=== PATIENT | female | born 1960 | race Caucasian/White ===

== ENCOUNTER 2016-06-23 12:42 | Emergency (ER) | payer MEDICAID ==
[2016-06-23] MEDS ORDERED: BUPIVACAINE 0.5% PF 30 ML VIAL ONE (12:57)
[2016-06-23] MEDS ORDERED: SODIUM BICARBONATE ABBOJECT 50 MEQ/50 ML SYRINGE ONE (12:57)
[2016-06-23] MEDS ORDERED: AMOXICILLIN 250 MG CAPSULE PO STA (13:03)
[2016-06-23] MEDS ORDERED: AMOXICILLIN 250 MG CAPSULE PO ONE (13:04)
[2016-06-23] MEDS ORDERED: HYDROcod/ACETAM 5/325 MG TABLET PO STA (13:23)
[2016-06-23] MEDS ORDERED: HYDROcod/ACETAM 5/325 MG TABLET ONE (13:25)
== END 2016-06-23 13:29 | disposition home or self-care (01) ==
DX: K04.7 Periapical abscess without sinus (principal); L03.211 Cellulitis of face; K02.9 Dental caries, unspecified; Z87.891 Personal history of nicotine dependence
CPT/HCPCS: 41800; 64400; 99283; A9270

== ENCOUNTER 2019-11-28 09:57 | Emergency (ER) | payer MEDICAID ==
[2019-11-28 10:16] VITALS: BP 141/90
[2019-11-28] MEDS ORDERED: BUFFERED LIDOCAINE 10 ML SYRINGE SUBQ STA (11:39)
[2019-11-28] MEDS ORDERED: LIDOCAINE 1% 2 ML VIAL SUBQ STA (11:53)
--- NOTE | 2019-11-28 11:56 | ED Physician Documentation ---
PD HPI UPPER EXT INJURY - Stated complaint Stated Complaint: L HAND LAC - Chief complaint Chief Complaint: Laceration - History obtained from History obtained from: Patient - Additonal information Additional information: Patient states that she was operating a hide trimmer when she accidentally cut her left middle and ring fingertips. Patient denies any other injuries at this time. She states this happened about an hour and a half ago. Patient states she thinks her last tetanus shot was within the last 10 years. Review of Systems Ten Systems: 10 systems reviewed and negative Constitutional: reports: Reviewed and negative Eyes: reports: Reviewed and negative Ears: reports: Reviewed and negative Nose: reports: Reviewed and negative Throat: reports: Reviewed and negative Cardiac: reports: Reviewed and negative Respiratory: reports: Reviewed and negative GI: reports: Reviewed and negative : reports: Reviewed and negative Skin: reports: Laceration (s) Musculoskeletal: reports: Reviewed and negative Neurologic: reports: Reviewed and negative Psychiatric: reports: Reviewed and negative Endocrine: reports: Reviewed and negative Immunocompromised: reports: Reviewed and negative PD PAST MEDICAL HISTORY - Past Surgical History Past Surgical History: Yes - Present Medications Home Medications: Ambulatory Orders Medication Instructions Recorded Confirmed Amoxicillin 500 mg PO TID #30 capsule 06/23/16 HYDROcod/ACETAM 5/325 [[place] 5/325] 1 - 2 ea PO Q6H PRN #15 tablet 06/23/16 Hydrocodone/Acetaminophen 1 - 2 each PO Q6H PRN #14 tablet 11/28/19 [Hydrocodon-Acetaminophen 5-325] - Allergies Allergies/Adverse Reactions: Allergies Allergy/AdvReac Type Severity Reaction Status Date / Time No Known Drug Allergies Allergy Verified 11/28/19 10:13 - Social History Does the pt smoke?: Yes Smoking Status: Current every day smoker Does the pt drink ETOH?: Yes Does the pt have substance abuse?: Yes - Immunizations Immunizations are current?: Yes PD ED PE NORMAL - Vitals Vital signs reviewed: Yes - General General: Alert and oriented X 3, No acute distress - HEENT HEENT: Atraumatic, PERRL, EOMI, Moist mucous membranes - Neck Neck: Supple, no meningeal sign - Cardiac Cardiac: Strong equal pulses - Respiratory Respiratory: No respiratory distress - Derm Derm: Normal color, Warm and dry, No rash, Other (Patient has a 1.5 cm laceration to the outermost tip of her left ring finger. She has 4 parallel lacerations of the distalmost tip of her middle finger which are approximately 1.5 cm in length and linear. No foreign bodies. Bleeding is controlled. ) - Extremities Extremities: No deformity, Other (Vertical laceration involves the distalVertical laceration involves the distal of the patient's nail and nailbed on the middle finger, without other trauma to the nail.) - Neuro Neuro: Alert and oriented X 3 - Psych Psych: Normal mood, Normal affect Results - Vitals Vitals: Vital Signs - 24 hr 11/28/19 10:13 Temperature 36.8 C Heart Rate 89 Respiratory 18 Rate Blood Pressure 141/90 H O2 Saturation 96 Oxygen O2 Source Room air Procedures - Laceration (location) ring finger L Length in cm: 1.5 Wound type: Linear, Into subcut fat, Clean. No: Contaminated Neurovascular status: Sensory intact, Motor intact Tendon involvement: No: Tendon Injury Anesthesia: Lidocaine 1% Wound Preparation: Hibiclens, Irrigated copiously NS, Wound explored, To the base. No: FB identified Skin layer closure: Nylon, Interrupted, Size #-0 - enter number (5.0), Sutures - enter # (3) Other: Patient tolerated well, No complications, Neurovascular intact, Dressing applied, Tetanus UTD Complexity: Intermediate L middle finger Length in cm: 6 (4 lacs 1.5 cm each) Wound type: Irregular, Flap, Into subcut fat, Clean. No: Contaminated Neurovascular status: Sensory intact, Motor intact, Vascular intact Tendon involvement: No: Tendon Injury Anesthesia: Lidocaine 1% Wound Preparation: Hibiclens, Irrigated copiously NS, Wound explored, To the base, Multiple flaps aligned. No: FB identified Skin layer closure: Nylon, Interrupted, Size #-0 - enter number (5.0), Sutures - enter # (11) Other: Patient tolerated well, No complications, Neurovascular intact, Dressing applied, Tetanus UTD Complexity: Complex PD MEDICAL DECISION MAKING - ED course Complexity details: reviewed results, re-evaluated patient, considered differential, d/w patient ED course: Wound repaired, as above. We have discussed wound care and the timeline for suture removal. We have discussed signs of infection and the usual indications for return. Departure - Departure Disposition: 01 Home, Self Care Clinical Impression: Laceration Condition: Stable Instructions: ED Laceration All Prescriptions: Hydrocodone/Acetaminophen [Hydrocodon-Acetaminophen 5-325] 1 - 2 each PO Q6H PRN #14 tablet PRN Reason: pain Comments: Please keep your wounds clean and dry. You may allow water to run over the wounds, but do not rub scrub or immerse the wounds until the sutures have been removed. Your sutures should be removed by medical professional in about 7 days. You may go to family practice clinic/your primary care physician, urgent care, walk-in, or if you need to come to the emergency department. If you develop redness and swelling spreading away from the wounds progressively, or if you develop pus-like drainage from the wounds, you should have the wounds rechecked. Discharge Date/Time: 11/28/19 13:10
== END 2019-11-28 13:10 | disposition home or self-care (01) ==
LOC: ED 09:57
DX: S61.313A Laceration without foreign body of left middle finger with damage to nail, initial encounter (principal); S61.215A Laceration without foreign body of left ring finger without damage to nail, initial encounter; W29.3XXA Contact with powered garden and outdoor hand tools and machinery, initial encounter; Y93.H2 Activity, gardening and landscaping; F17.200 Nicotine dependence, unspecified, uncomplicated
CPT/HCPCS: 12041; 13132

== ENCOUNTER 2019-12-07 14:15 | Emergency (ER) | payer MEDICAID ==
[2019-12-07 14:27] VITALS: BP 143/89
--- NOTE | 2019-12-07 14:37 | ED Physician Documentation ---
PD HPI UPPER EXT INJURY - Stated complaint Stated Complaint: SUTURE REMOVAL FINGERS - Chief complaint Chief Complaint: Laceration - History obtained from History obtained from: Patient - History of Present Illness Location: Left (She cut the left middle and ring fingers a little over a week ago with hedge tremors. The middle finger still bothering her a lot.) Review of Systems Constitutional: reports: Reviewed and negative Eyes: reports: Reviewed and negative Ears: reports: Reviewed and negative Nose: reports: Reviewed and negative Throat: reports: Reviewed and negative PD PAST MEDICAL HISTORY - Past Surgical History Past Surgical History: Yes - Present Medications Home Medications: Ambulatory Orders Medication Instructions Recorded Confirmed Amoxicillin 500 mg PO TID #30 capsule 06/23/16 HYDROcod/ACETAM 5/325 [[place] 5/325] 1 - 2 ea PO Q6H PRN #15 tablet 06/23/16 Hydrocodone/Acetaminophen 1 - 2 each PO Q6H PRN #14 tablet 11/28/19 [Hydrocodon-Acetaminophen 5-325] - Allergies Allergies/Adverse Reactions: Allergies Allergy/AdvReac Type Severity Reaction Status Date / Time No Known Drug Allergies Allergy Verified 11/28/19 10:13 - Social History Does the pt smoke?: Yes Smoking Status: Current every day smoker Does the pt drink ETOH?: Yes Does the pt have substance abuse?: Yes - Immunizations Immunizations are current?: Yes PD ED PE NORMAL - Vitals Vital signs reviewed: Yes - General General: Alert and oriented X 3, No acute distress - Extremities Extremities: No deformity, No tenderness to palpate - Neuro Neuro: Alert and oriented X 3, Normal speech Results - Vitals Vitals: Vital Signs - 24 hr 12/07/19 14:25 Temperature 36.7 C Heart Rate 77 Respiratory 18 Rate Blood Pressure 143/89 H O2 Saturation 100 Oxygen O2 Source Room air PD MEDICAL DECISION MAKING - ED course ED course: 3 sutures on the right ring finger pulp were removed without issue. The left finger was macerated. 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 As such the sutures did not seem quite ready to come out from the middle finger and they were left in but she was advised on wound care and how to keep it not too moist and macerated and she will return in another few days for suture removal. Departure - Departure Disposition: 01 Home, Self Care Clinical Impression: Encounter for removal of sutures Condition: Good Record reviewed to determine appropriate education?: Yes Instructions: ED Laceration All Comments: As discussed, I think you will heal much better if the wound stays just a little graphite pan drier tender. Wear the splint I gave you at work, when you are at home you can wash briefly with soap and water but then leave it open to air at times to let it dry out. Return in about 3-5 days for suture removal from the middle finger.
== END 2019-12-07 14:45 | disposition home or self-care (01) ==
LOC: ED 14:15
DX: S61.213D Laceration without foreign body of left middle finger without damage to nail, subsequent encounter (principal); S61.215D Laceration without foreign body of left ring finger without damage to nail, subsequent encounter; F17.200 Nicotine dependence, unspecified, uncomplicated; Z48.02 Encounter for removal of sutures
CPT/HCPCS: 99281; 99282

== ENCOUNTER 2019-12-19 12:12 | Emergency (ER) | payer MEDICAID ==
[2019-12-19 12:20] VITALS: BP 162/88
--- NOTE | 2019-12-19 12:27 | ED Physician Documentation ---
History of Present Illness - Stated complaint Stated Complaint: FINGER SUTURE REMOVAL - Chief complaint Chief Complaint: Laceration - History obtained from History obtained from: Patient - History of Present Illness Timing: How many weeks ago (3) Pain level max: 3 Pain level now: 2 - Additonal information Additional information: 59-year-old female presents to the emergency department requesting removal of sutures that were placed approximately 3 weeks ago after a zipper trimmer injury. She states that the finger has been red and swollen, increasingly painful. Worse with movement, better with rest. No fevers. Review of Systems Constitutional: denies: Fever, Chills Skin: denies: Rash PD PAST MEDICAL HISTORY - Past Medical History Past Medical History: No - Past Surgical History Past Surgical History: Yes - Present Medications Home Medications: Ambulatory Orders Medication Instructions Recorded Confirmed Amoxicillin 500 mg PO TID #30 capsule 06/23/16 HYDROcod/ACETAM 5/325 [[place] 5/325] 1 - 2 ea PO Q6H PRN #15 tablet 06/23/16 Hydrocodone/Acetaminophen 1 - 2 each PO Q6H PRN #14 tablet 11/28/19 [Hydrocodon-Acetaminophen 5-325] Cephalexin [Keflex] 500 mg PO Q6H #28 capsule 12/19/19 - Allergies Allergies/Adverse Reactions: Allergies Allergy/AdvReac Type Severity Reaction Status Date / Time No Known Drug Allergies Allergy Verified 12/19/19 12:17 - Social History Does the pt smoke?: Yes Smoking Status: Current every day smoker Does the pt drink ETOH?: Yes Does the pt have substance abuse?: Yes - Immunizations Immunizations are current?: Yes - POLST Patient has POLST: No PD ED PE NORMAL - Vitals Vital signs reviewed: Yes - General General: Alert and oriented X 3, No acute distress - HEENT HEENT: Moist mucous membranes - Derm Derm: Warm and dry - Extremities Extremities: Other (L middle finger - Mild erythema and swelling to the distal aspect of the digit.) - Neuro Neuro: Alert and oriented X 3 Results - Vitals Vitals: Vital Signs - 24 hr 12/19/19 12:17 Temperature 36.5 C Heart Rate 84 Respiratory 14 Rate Blood Pressure 162/88 H O2 Saturation 98 Oxygen O2 Source Room air PD MEDICAL DECISION MAKING - ED course Complexity details: considered differential, d/w patient ED course: Sutures were removed. Tolerated well. There appears to be a component of cellulitis. Will place on antibiotics. Patient counseled regarding signs and symptoms for which I believe and urgent re-evaluation would be necessary. Patient with good understanding of and agreement to plan and is comfortable going home at this time This document was made in part using voice recognition software. While efforts are made to proofread this document, sound alike and grammatical errors may o ccur. Departure - Departure Disposition: Home, Self Care Clinical Impression: Encounter for removal of sutures Condition: Good Instructions: ED Wound Check Sutr Removal Infec Follow-Up: your,doctor as needed [Other] Prescriptions: Cephalexin [Keflex] 500 mg PO Q6H #28 capsule Comments: Return if you worsen. Your sutures were removed today. Take all antibiotics until gone. Return if you notice increasing swelling, redness or drainage from the wound Discharge Date/Time: 12/19/19 12:40
== END 2019-12-19 12:40 | disposition home or self-care (01) ==
LOC: ED 12:12
DX: S61.213D Laceration without foreign body of left middle finger without damage to nail, subsequent encounter (principal); W27.8XXD Contact with other nonpowered hand tool, subsequent encounter; L53.9 Erythematous condition, unspecified; F17.200 Nicotine dependence, unspecified, uncomplicated
CPT/HCPCS: 99281; 99282

== ENCOUNTER 2020-02-05 08:34 | Outpatient (CLI) | payer MEDICAID | END 2020-02-05 08:35 | disposition critical access hospital (66) | LOC: EMS 08:34 | PROVIDERS: ATTEND Surgery | DX: M25.551 Pain in right hip (principal); S69.91XA Unspecified injury of right wrist, hand and finger(s), initial encounter; W17.89XA Other fall from one level to another, initial encounter; Y93.H9 Activity, other involving exterior property and land maintenance, building and construction; Y92.008 Other place in unspecified non-institutional (private) residence as the place of occurrence of the external cause | CPT/HCPCS: A0425; A0429; A0999 ==

== ENCOUNTER 2020-02-05 09:06 | Emergency (ER) | payer MEDICAID ==
--- NOTE | 2020-02-05 10:03 | XRAY Report ---
PROCEDURE: Wrist 3 View RT INDICATIONS: fall TECHNIQUE: 3 views of the wrist were acquired. COMPARISON: None FINDINGS: Bones: There is an impacted fracture seen involving the radial aspect of the distal radius, with mil d displacement and comminution. Intra-articular involvement is seen. No radiocarpal dislocation is seen. No accompanying fracture of the distal ulna can be seen. Age-appropriate degenerative changes are seen. Soft tissues: Mild soft tissue swelling is seen. IMPRESSION: Fracture of the distal radius, with intra-articular involvement. Reviewed by: Baljinder Cronin MD on 02/05/2020 9:01 AM JUVE Approved by: Baljinder Cronin MD on 02/05/2020 9:01 AM JUVE Station ID: [id number]
[2020-02-05] MEDS ORDERED: KETOROLAC 60 MG/2 ML VIAL IM STA (11:30)
[2020-02-05] MEDS ORDERED: HYDROcod/ACETAM 5/325 MG TABLET PO STA (11:30)
--- NOTE | 2020-02-05 12:34 | XRAY Report ---
PROCEDURE: Hip w/Pelvis 2-3V RT INDICATIONS: FALL TECHNIQUE: AP pelvis with lateral view(s) of the right hip. COMPARISON: None available on the PACS system at the time of this dictation. FINDINGS: Bones: There is a mildly displaced, comminuted fracture of the right pubis, which appears to also in volve the right superior pubic ramus and the right inferior pubic ramus. No suspicious bony lesions. Age-appropriate degenerative changes are seen, including involving the visualized lower lumbar spine. Soft tissues: The visualized bowel gas pattern is normal. No suspicious soft tissue calcifications. IMPRESSION: Comminuted fracture of the right pubis, with involvement of the right superior pubic rishabh us and the right inferior pubic ramus. Please consider a dedicated pelvis CT for further evaluation. Reviewed by: Baljinder Cronin MD on 02/05/2020 11:33 AM JUVE Approved by: Baljinder Cronin MD on 02/05/2020 11:33 AM JUVE Station ID: [id number]
[2020-02-05 13:28] LABS: BASOPHILS % (AUTO) 0.2 %; EOSINOPHILS % (AUTO) 0.4 %; LYMPHOCYTES # (AUTO) 1.2 10^3/uL (1.5-3.5); LYMPHOCYTES % (AUTO) 12.9 %; MEAN CORPUSCULAR HEMOGLOBIN 32.5 pg (27.0-31.0); MEAN CORPUSCULAR HGB CONC 33.4 g/dL (32.0-36.0); MEAN CORPUSCULAR VOLUME 97.3 fL (81.0-99.0); MEAN PLATELET VOLUME 8.9 fL (7.9-10.8); MONOCYTES # (AUTO) 0.7 10^3/uL (0.0-1.0); MONOCYTES % (AUTO) 7.1 %; NEUTROPHILS # (AUTO) 7.6 10^3/uL (1.5-6.6); NEUTROPHILS % (AUTO) 79.1 %; PLT - PLATELET COUNT 284 10^3/uL (130-450); RED BLOOD COUNT 3.38 10^6/uL (4.20-5.40); WHITE BLOOD COUNT 9.6 x10^3/uL (4.8-10.8)
--- NOTE | 2020-02-05 13:31 | CT Report ---
PROCEDURE: PELVIS WO INDICATIONS: pelvic fracture TECHNIQUE: Noncontrast 3 mm axial sections acquired through the bony pelvis, with coronal and sagittal reformatt ing. For radiation dose reduction, the following was used: automated exposure control, adjustment of mA and/or kV according to patient size. COMPARISON: Correlation is made with pelvis plain films, 02/05/2020 FINDINGS: Image quality: Excellent. Bones: There is a comminuted fracture seen of the right pubis, as on series 3 image 60. Fractures ar e also seen of the right superior pubic ramus, as on series 6 image 30 and the right inferior pubic r amus, as on series 6 image 38, and on series 3 image 70. No sacral fracture can be seen. No proximal femur fracture can be seen. No fractures can be seen invo lving the acetabulum on either side. Degenerative changes are seen, which are overall most prominent involving the L5-S1 level. No suspici ous lytic or blastic lesions are seen. Soft tissues: Mild soft tissue swelling can be seen adjacent to the fractures. Atherosclerotic calcification is seen. No dilated loops of bowel are seen. A normal appendix is incid entally noted. No adnexal masses are seen. No focal bladder abnormality is seen. IMPRESSION: There is a fracture involving the right pubis, with fracture lines also involving the right inferior pubic ramus and the right superior pubic ramus. Mild soft tissue swelling can be seen adjacent to the fractures. No focal bladder injury is seen. If there is strong clinical concern for bladder injury, please consi dana a follow-up contrast-enhanced CT, with delayed images. Incidental note is made of: Atherosclerotic calcification Normal appendix Focal L5-S1 degenerative change Reviewed by: Baljinder Cronin MD on 02/05/2020 12:29 PM JUVE Approved by: Baljinder Cronin MD on 02/05/2020 12:29 PM JUVE Station ID: [id number]
[2020-02-05 13:36] LABS: INR 1.1 (0.8-1.2); PT - PROTHROMBIN TIME 12.4 secs (9.9-12.6)
[2020-02-05 13:40] LABS: ALBUMIN 4.2 g/dL (3.2-5.5); ALBUMIN/GLOBULIN RATIO 1.4 (1.0-2.2); BILIRUBIN,TOTAL 0.7 mg/dL (0.2-1.0); CALCIUM 9.4 mg/dL (8.5-10.3); CREATININE 0.8 mg/dL (0.4-1.0); TOTAL PROTEIN 7.2 g/dL (6.7-8.2)
--- NOTE | 2020-02-05 15:19 | ED Physician Documentation ---
History of Present Illness - Stated complaint Stated Complaint: GLF - Chief complaint Chief Complaint: Back Pain - History obtained from History obtained from: Patient - Additonal information Additional information: Patient comes emergency department complaining of a ground-level fall last night in which she injured her right wrist and her right hip. Patient states that she lives in 1/5 wheel and was unable to walk after the fall. She had to crawl up the steps into her fifth wheel and was able to get herself into bed. After this, she really has not done any sort of physical movement or borne weight. She denies hitting her head. No neck or back pain. No numbness or tingling in her extremities. No prior pelvic injury. No other complaints at this time. Review of Systems Ten Systems: 10 systems reviewed and negative Constitutional: reports: Reviewed and negative Eyes: reports: Reviewed and negative Ears: reports: Reviewed and negative Nose: reports: Reviewed and negative Throat: reports: Reviewed and negative Cardiac: reports: Reviewed and negative Respiratory: reports: Reviewed and negative GI: reports: Reviewed and negative : reports: Reviewed and negative Skin: reports: Reviewed and negative Musculoskeletal: reports: Extremity pain, Joint pain, Extremity swelling, Pain with weight bearing Neurologic: reports: Reviewed and negative Psychiatric: reports: Reviewed and negative Endocrine: reports: Reviewed and negative Immunocompromised: reports: Reviewed and negative PD PAST MEDICAL HISTORY - Past Surgical History Past Surgical History: Yes - Present Medications Home Medications: Ambulatory Orders Medication Instructions Recorded Confirmed Amoxicillin 500 mg PO TID #30 capsule 06/23/16 HYDROcod/ACETAM 5/325 [[place] 5/325] 1 - 2 ea PO Q6H PRN #15 tablet 06/23/16 Hydrocodone/Acetaminophen 1 - 2 each PO Q6H PRN #14 tablet 11/28/19 [Hydrocodon-Acetaminophen 5-325] Cephalexin [Keflex] 500 mg PO Q6H #28 capsule 12/19/19 Oxycodone HCl/Acetaminophen 1 - 2 each PO Q6H PRN #20 tablet 02/05/20 [Percocet 5-325 mg Tablet] - Allergies Allergies/Adverse Reactions: Allergies Allergy/AdvReac Type Severity Reaction Status Date / Time No Known Drug Allergies Allergy Verified 12/19/19 12:17 - Social History Does the pt smoke?: Yes Smoking Status: Current every day smoker Does the pt drink ETOH?: Yes Does the pt have substance abuse?: Yes - Immunizations Immunizations are current?: Yes - POLST Patient has POLST: No PD ED PE NORMAL - Vitals Vital signs reviewed: Yes - General General: Alert and oriented X 3, No acute distress - HEENT HEENT: Atraumatic, PERRL, EOMI, Moist mucous membranes - Neck Neck: Supple, no meningeal sign - Cardiac Cardiac: RRR, No murmur - Respiratory Respiratory: No respiratory distress, Clear bilaterally - Abdomen Abdomen: Soft, Non tender, Non distended - Back Back: No CVA TTP, No spinal TTP - Derm Derm: Normal color, Warm and dry, No rash - Extremities Extremities: Other (Mild deformity right wrist. Mild edema. No pelvic bone tenderness or step-off with lateral compression or AP compression. No tenderness palpation over the patient's right femur or hip. No shortening or rotation of the right lower extremity. Remainder of musculoskeletal exam unremarkable.) - Neuro Neuro: Alert and oriented X 3, crisis nurse 2-12 intact, No motor deficit, No sensory deficit, Normal speech - Psych Psych: Normal mood, Normal affect Results - Vitals Vitals: Vital Signs - 24 hr 02/05/20 02/05/20 02/05/20 09:15 11:42 15:19 Temperature 36.9 C 36.6 C Heart Rate 98 66 70 Respiratory 16 18 18 Rate Blood Pressure 128/75 145/83 H 144/81 H O2 Saturation 98 98 99 Oxygen O2 Source Room air - Labs Labs: Laboratory Tests 02/05/20 02/05/20 02/05/20 13:24 13:24 13:24 WBC 9.6 RBC 3.38 L Hgb 11.0 L Hct 32.9 L MCV 97.3 MCH 32.5 H MCHC 33.4 RDW 14.0 Plt Count 284 MPV 8.9 Neut # (Auto) 7.6 H Lymph # (Auto) 1.2 L Hopkins # (Auto) 0.7 Eos # (Auto) 0.0 Baso # (Auto) 0.0 Absolute Nucleated RBC 0.00 Nucleated RBC % 0.0 PT 12.4 INR 1.1 Sodium 136 Potassium 3.7 Chloride 99 L Carbon Dioxide 29 Anion Gap 8.0 BUN 23 H Creatinine 0.8 Estimated GFR (MDRD) 74 L Glucose 97 Calcium 9.4 Total Bilirubin 0.7 AST 25 ALT 19 Alkaline Phosphatase 68 Total Protein 7.2 Albumin 4.2 Globulin 3.0 Albumin/Globulin Ratio 1.4 - Rads (name of study) R hip/pelvis Radiology: Final report received, EMP read indepedently, See rad report (comminuted rami fractures) R wrist xr Radiology: Final report received, EMP read indepedently, See rad report (distal radius fx) pelvic CT Radiology: Final report received, EMP read indepedently, See rad report (Fract ure involving the right pubis, with fracture lines also involving R inferior pubic ramus and R superior pubic ramus) Procedures - Splint (location) RUE Splint applied by: Tech (Under my direct supervision) Type of splint: Fiberglass, Sugar tong Other: Patient tolerated well, No complications, Neurovascular intact, Sling provided PD MEDICAL DECISION MAKING - ED course Complexity details: reviewed old records, reviewed results, re-evaluated patient, considered differential, d/w patient ED course: The patient was worked up initially With x-rays of the right wrist and pelvis and found to have a distal radius fracture and comminuted fractures of the pubis and pubic rami. She was placed in a sugar tong splint for her wrist fracture and was sent for CT of the pelvis to further evaluate the pelvic fracture. Labs were drawn on the possibility that the patient would have pelvic bleeding. No evidence of soft tissue damage was noted, but patient was found to have confi rmation of fractures of the pubis and rami. I spoke with Dr. Sandy of orthopedics and he stated that if the patient was able to be made comfortable enough, she could be managed as an outpatient, and that the pelvic fracture is not expected to be surgical. He would like to see her the day after tomorrow in his clinic after the holiday weekend. He has also stated that if the patient needs inpatient management for pain control, he would be happy to consult. I spoke with the patient regarding all of this, and she stated that she absolutely did not want to stay here in the hospital. She stated that she has a dog at home she needs to care for and does not relieve it by itself. The patient stated that her pain was significantly better after the Dilaudid and Toradol we gave her. She was able to stand and ambulate with a walker by placing her right elbow on the right handle and holding on the left. I have urged her to stay in the hospital but she absolutely does not want to and has stated repeatedly that she wants to be given a chance to be at home. We have discussed that if she is not able to function at home, then she needs to return and may need to have social work help set up some home assistance for her. I have communicated to her DrMarcie odom wishes to see her the day after tomorrow in his clinic and that she needs to call to set up a time. I have given her prescriptions for home pain medication. We have discussed the usual indications for return. Departure - Departure Disposition: Home, Self Care Clinical Impression: Pelvic fracture Qualifiers: Encounter type: initial encounter Pelvic bone location: pubis Sublocation of pubis: unspecified portion of pubis Fracture type: closed Laterality: right Qualified Code(s): S32.501A - Unspecified fracture of right pubis, initial encounter for closed fracture Distal radius fracture, right Qualifiers: Encounter type: initial encounter Fracture type: closed Fracture morphology: unspecified fracture morphology Qualified Code(s): S52.501A - Unspecified fracture of the lower end of right radius, initial encounter for closed fracture Condition: Stable Instructions: ED Fx Pelvis, ED Fx Forearm Radius Ulna No Redu Requ Follow-Up: Greg Sandy MD [Provider Admit Priv/Credential] - Prescriptions: Oxycodone HCl/Acetaminophen [Percocet 5-325 mg Tablet] 1 - 2 each PO Q6H PRN #20 tablet PRN Reason: pain Comments: Your x-rays today showed a break in the radius bone of your right wrist, as well as fractures through the front rings of your pelvis. Your case has been discussed with Dr. Pizano, the on-call orthopedic surgeon. He would like to see you in his clinic on February 06, and would like you to call his office first thing in the morning to make that appointment. He has said that your pelvic fracture is stable and does not need surgery. This is a fracture that you may walk with, but should use the walker or other support. Please try to avoid putting pressure on your wrist as much as possible. As far as the wrist fracture, Dr. Gale and will look at your x-rays and decide whether you need to have surgery or not. Please keep the splint on until you are seen by him in clinic. Please take the pain medication as needed. You have been offered hospital admission today, and would most likely benefit from this, but you have declined at this time. If at any point you become unable to function or become in danger of injury at home throughout this process, please return to the [facility]. Discharge Date/Time: 02/05/20 15:22
[2020-02-05 15:21] VITALS: BP 144/81
== END 2020-02-05 15:22 | disposition home or self-care (01) ==
LOC: EDUNIT# → ED 09:06
DX: S32.511A Fracture of superior rim of right pubis, initial encounter for closed fracture (principal); S52.571A Other intraarticular fracture of lower end of right radius, initial encounter for closed fracture; W18.30XA Fall on same level, unspecified, initial encounter; F17.200 Nicotine dependence, unspecified, uncomplicated
CPT/HCPCS: 29105; 36415; 72192; 73110; 73502; 80053; 85025; 85610; 96372; 99284; A9270